=== PATIENT | female | born 1975 | race Caucasian/White ===

== ENCOUNTER 2022-02-06 13:58 | Outpatient (CLI) | payer BC, SELFPAY | END 2022-02-06 13:59 | disposition home or self-care (01) | LOC: LKVREF 13:58 | PROVIDERS: Visit Provider Emergency Medicine | DX: N12 Tubulo-interstitial nephritis, not specified as acute or chronic (principal); N39.0 Urinary tract infection, site not specified | CPT/HCPCS: 87086 ==

== ENCOUNTER 2022-05-07 14:31 | Outpatient (CLI) | payer BC, SELFPAY | END 2022-05-07 14:32 | disposition home or self-care (01) | LOC: LKVREF 14:31 | PROVIDERS: Visit Provider Emergency Medicine | DX: R30.0 Dysuria (principal); N39.0 Urinary tract infection, site not specified | CPT/HCPCS: 87086; 87186 ==

== ENCOUNTER 2022-11-06 10:07 | Outpatient (CLI) | payer BC, SELFPAY | END 2022-11-06 10:08 | disposition home or self-care (01) | LOC: NFLDREF 11-08 11:34 | PROVIDERS: PCP Emergency Medicine; Referring Provider Emergency Medicine; Visit Provider Family Medicine | DX: R39.9 Unspecified symptoms and signs involving the genitourinary system (principal); N39.0 Urinary tract infection, site not specified | CPT/HCPCS: 87086 ==

== ENCOUNTER 2023-02-23 13:09 | Outpatient (CLI) | payer BC, SELFPAY ==
--- NOTE | 2023-02-23 13:20 | CRLHL7_ITS ---
For Patients: As a result of the Cures Act, medical imaging exams and procedure reports are released immediately into your electronic medical record. You may view this report before your referring provider. If you have questions, please contact your health care provider. BILATERAL SCREENING MAMMOGRAM WITH COMPUTER-AIDED DETECTION AND TOMOSYNTHESIS TECHNIQUE: CC and MLO views were obtained. These mammographic images have been obtained using full-field digital technique. These mammographic images were interpreted with the benefit of computer-aided detection. Breast Tomosynthesis was used in this interpretation. COMPARISON FILM: 01/03/22, 12/27/20, 12/23/19. FINDINGS: The breasts are almost entirely fatty IMPRESSION: There is no radiographic evidence for malignancy. ASSESSMENT: BI-RADS Category 1: Negative RECOMMENDATION: Routine screening mammogram in 1 year. A lay language report of this examination will be provided to the patient. Paulino Alamo M.D. Diagnostic Radiologist [email or web address] Transcribed: 3:40 p.mKushal velazquez/Dictated by: Paulino Alamo MD @ 02/25/2023 1:48:00 PM (Electronically Signed)
== END 2023-02-23 13:10 | disposition home or self-care (01) ==
LOC: MAMMO 13:09
PROVIDERS: PCP Emergency Medicine; Visit Provider Emergency Medicine
DX: Z12.31 Encounter for screening mammogram for malignant neoplasm of breast (principal)
CPT/HCPCS: 77063; 77067

== ENCOUNTER 2023-04-27 09:32 | Outpatient (CLI) | payer BC, SELFPAY ==
--- NOTE | 2023-04-27 10:30 | W.ANESCHARGE ---
Anesthesia Charges Start Date/Time Anesthesia Start Date: 04/27/23 Anesthesia Start Time: 09:57 Stop Date/Time Anesthesia Stop Date: 04/27/23 Anesthesia Stop Time: 10:25
--- NOTE | 2023-04-27 10:32 | W.ANESCHARGE ---
Anesthesia Charges Start Date/Time Anesthesia Start Date: 04/27/23 Anesthesia Start Time: 09:57 Stop Date/Time Anesthesia Stop Date: 04/27/23 Anesthesia Stop Time: 10:25
--- NOTE | 2023-04-27 10:43 | W.ANESCHARGE ---
Anesthesia Charges Start Date/Time Anesthesia Start Date: 04/27/23 Anesthesia Start Time: 09:57 Stop Date/Time Anesthesia Stop Date: 04/27/23 Anesthesia Stop Time: 10:25
== END 2023-04-27 09:33 | disposition home or self-care (01) ==
LOC: OP CLINIC 09:34
PROVIDERS: PCP Emergency Medicine; Visit Provider Surgery
DX: Z12.11 Encounter for screening for malignant neoplasm of colon (principal)
CPT/HCPCS: 45378; 811; 812; J2704

== ENCOUNTER 2024-02-03 08:07 | Outpatient (CLI) | payer BC, SELFPAY | END 2024-02-03 08:08 | disposition home or self-care (01) | PROVIDERS: PCP Emergency Medicine; Visit Provider Obstetrics & Gynecology | DX: N92.1 Excessive and frequent menstruation with irregular cycle (principal); I10 Essential (primary) hypertension; E03.9 Hypothyroidism, unspecified; R53.83 Other fatigue; D50.9 Iron deficiency anemia, unspecified; E55.9 Vitamin D deficiency, unspecified | CPT/HCPCS: 82728; 83540; 83550; 84439; 84443 ==

== ENCOUNTER 2024-02-04 14:38 | Outpatient (CLI) | payer BC, SELFPAY ==
--- NOTE | 2024-02-04 14:45 | CRLHL7_ITS ---
For Patients: As a result of the Century Cures Act, medical imaging exams and procedure reports are released immediately into your electronic medical record. You may view this report before your referring provider. If you have questions, please contact your health care provider. INDICATION: Excessive and frequent menstruation COMPARISON: none TECHNIQUE: 2D stearns scale and color Doppler images were acquired of the pelvis using a transabdominal and transvaginal approach. FINDINGS: Sonographic images demonstrate a normal size and smooth outer contour of the uterus. Uterus measures 8.3 cm in length by 3.9 cm in AP diameter by 4.6 cm in transverse dimension. Incidental cervical nabothian cysts are present. The endometrial lining appears normal and measures 5 mm in composite thickness. The ovaries are not visualized. There are no suspicious fluid collections within the cul-de-sac. IMPRESSION: Endometrial thickness 5 millimeters. No endometrial fluid or uterine fibroid. Dictated by Paulino Alamo MD @ 02/05/2024 6:47:52 AM (Electronically Signed)
== END 2024-02-04 14:39 | disposition home or self-care (01) ==
LOC: US 14:38
PROVIDERS: PCP Emergency Medicine; Visit Provider Obstetrics & Gynecology
DX: N92.1 Excessive and frequent menstruation with irregular cycle (principal); R93.89 Abnormal findings on diagnostic imaging of other specified body structures
CPT/HCPCS: 76830; 76856

== ENCOUNTER 2024-03-10 15:32 | Outpatient (CLI) | payer BC, SELFPAY ==
--- NOTE | 2024-03-10 15:40 | CRLHL7_ITS ---
For Patients: As a result of the Century Cures Act, medical imaging exams and procedure reports are released immediately into your electronic medical record. You may view this report before your referring provider. If you have questions, please contact your health care provider. BILATERAL SCREENING MAMMOGRAM WITH COMPUTER-AIDED DETECTION AND TOMOSYNTHESIS TECHNIQUE: CC and MLO views were obtained. These mammographic images have been obtained using full-field digital technique. These mammographic images were interpreted with the benefit of computer-aided detection. Breast Tomosynthesis was used in this interpretation. COMPARISON FILM: 02/23/23, 01/03/22, 12/27/20. FINDINGS: There are scattered areas of fibroglandular density IMPRESSION: There is no radiographic evidence for malignancy. ASSESSMENT: BI-RADS Category 1: Negative RECOMMENDATION: Routine screening mammogram in 1 year. A lay language report of this examination will be provided to the patient. Paulino Alamo M.D. Diagnostic Radiologist [email or web address] MICHELLE/Dictated by: Paulino Alamo MD @ 03/11/2024 10:17:00 AM (Electronically Signed)
== END 2024-03-10 15:33 | disposition home or self-care (01) ==
LOC: MAMMO 15:33
PROVIDERS: PCP Family Medicine; Visit Provider Radiology Diagnostic Radiology
DX: Z12.31 Encounter for screening mammogram for malignant neoplasm of breast (principal)
CPT/HCPCS: 77063; 77067

== ENCOUNTER 2024-03-14 14:29 | Outpatient (CLI) | payer BC, SELFPAY | END 2024-03-14 14:30 | disposition home or self-care (01) | LOC: FRMREF 14:29 | PROVIDERS: PCP Family Medicine; Visit Provider Family Medicine | DX: Z01.818 Encounter for other preprocedural examination (principal); E03.9 Hypothyroidism, unspecified | CPT/HCPCS: 84443 ==

== ENCOUNTER 2024-03-24 06:55 | Day surgery (SDC) | payer BC, SELFPAY ==
[2024-03-24 07:04] VITALS: BMI 34.0
[2024-03-24] MEDS: SODIUM CHLORIDE 0.9 % (FLUSH) 10 ML SYRINGE IVF (07:10)
[2024-03-24] MEDS: LACTATED RINGERS 1000 ML 1,000 ML 100 ML IV (07:10)
--- NOTE | 2024-03-24 07:11 | W.PM.H&PU ---
History & Physical Update History & Physical Update H&P Reviewed and patient assessed: No changes noted
[2024-03-24 07:12] LABS: Ur HCG Qualitative* Negative (Negative)
[2024-03-24 07:15] VITALS: BP 138/88; PULSE 91; RESP 16; TEMP 36.6; O2SAT 96
--- NOTE | 2024-03-24 07:29 | P.PCN_ITS ---
Procedure Note Time Seen by Provider: 08:54 Date Seen: 03/24/24 Date of procedure: 03/24/24 Will [facility] bill your pro fee for this procedure?: Yes Procedure: Preoperative diagnosis: 48 yo with irregular menstrual cycles. Postoperative diagnosis: Same. Procedure: Hysteroscopy, dilation and curettage, endometrial ablation. Anesthesia: Mac and paracervical block. Surgeon: Rebeakh Ling MD Assist: None Estimated blood loss: 3 mL IV Fluid: 500 mL Specimen: Endometrial curettings, sent to path. Findings: On exam under anesthesia: The cervix and vagina appear normal. The uterus was mid position, approximately 8 week size, mobile and without masses or nodularity palpable. Adnexa were without mass or fullness palpable bilaterally. On hysteroscopy: 1 polypoid mass otherwise normal-appearing endometrium. No other abnormalities noted. The uterus sounded to 9 cm. Cervical length 4.5 cm. Cavity length: 4.5. Procedure: Uterine was taken to the operating room where conscious sedation was found to be adequate. She was placed in a dorsal lithotomy position and an exam under anesthesia was performed with the findings stated above. She was then prepped and draped in a normal sterile manner. An a bivalve is sterile speculum was placed in the vaginal canal. A paracervical block was placed using 0.5% Marcaine: 10 mL were injected at the 4 and 8 o'clock positions on the cervix. A single-tooth tenaculum was placed on the anterior lip of the cervix. The cervix was then dilated to Hegar 6. Uterus sounded to 9 cm. The cervix measured 4.5 cm. There for the cavity length was 4.5 cm. The Truclear hyste roscope was advanced into the uterus. A diagnostic hysteroscopy performed with normal saline as the insufflation medium. Findings are stated above. The Truclear incisor was then advanced into the camera. And the curettage performed with this incisor. The curettage took approximately 2 min. The cavity appeared normal once the curettage was performed completed. Total insufflation saline used: 875 mL. Deficit 105 mL. The hysteroscope was removed. The cervix was then dilated to Hegar 8. The Nicolle device was advanced into the uterus. The cavity check was completed and the ablation took place over 2 min. Patient received 30 mg of Toradol IV prior to the procedure. The Nicolle was removed, the hysteroscope readvanced to document ablation of the entire cavity. The hysteroscope was then removed. The single-tooth tenaculum was removed from the anterior lip of the cervix. [employer] nitrate was used to obtain hemostasis at the tenaculum sites. The patient tolerated this procedure well. Sponge, lap and instrument counts were correct x2 at the end of the procedure and the patient was taken to the recovery area in stable condition.
[2024-03-24] MEDS: KETOROLAC 30 MG/ML inj IVP (08:25)
[2024-03-24] MEDS: BUPIVACAINE 0.5% 30 ML INJECTION (08:33)
[2024-03-24] MEDS: SILVER NITRATE APPLICATOR 1 EACH STICK..EA. TOPICAL (08:40)
--- NOTE | 2024-03-24 08:54 | SUR.OPER ---
Talked to surgeon regarding post op skin stearns juan c on left labia. Surgeon asked that silvadene cream be applied.
[2024-03-24 08:55] VITALS: BP 102/66; PULSE 89; RESP 16; TEMP 36.4; O2SAT 97
--- NOTE | 2024-03-24 08:55 | SUR.OPER ---
fluid deficit 105 ml
--- NOTE | 2024-03-24 08:59 | W.ANESCHARGE ---
Anesthesia Charges Start Date/Time Anesthesia Start Date: 03/24/24 Anesthesia Start Time: 08:10 Stop Date/Time Anesthesia Stop Date: 03/24/24 Anesthesia Stop Time: 08:58
[2024-03-24 09:00] VITALS: BP 116/81; PULSE 79; RESP 16; O2SAT 95
[2024-03-24 09:15] VITALS: BP 124/95; PULSE 81; RESP 16; O2SAT 100
--- NOTE | 2024-03-24 09:25 | W.ANESCHARGE ---
Anesthesia Charges Start Date/Time Anesthesia Start Date: 03/24/24 Anesthesia Start Time: 08:10 Stop Date/Time Anesthesia Stop Date: 03/24/24 Anesthesia Stop Time: 08:58
[2024-03-24 09:30] VITALS: BP 130/92; PULSE 80; RESP 16; O2SAT 98
[2024-03-24 09:45] VITALS: BP 102/47; PULSE 83; RESP 16; O2SAT 98
== END 2024-03-24 10:08 | disposition home or self-care (01) ==
PROVIDERS: PCP Family Medicine; Visit Provider Obstetrics & Gynecology
PROC: 0UF98ZZ Fragmentation in Uterus, Via Natural or Artificial Opening Endoscopic (ICD-10-PCS; CPT 58563; principal; 2024-03-24 08:15)
DX: N92.1 Excessive and frequent menstruation with irregular cycle (principal); D50.9 Iron deficiency anemia, unspecified; I10 Essential (primary) hypertension; E03.9 Hypothyroidism, unspecified
CPT/HCPCS: 58563; 00952; 81025; 88305; A9270; C1782; J0665; J1100; J1885; J2405; J2704; J3010; J7120

== ENCOUNTER 2025-02-10 15:20 | Outpatient (CLI) | payer BC, SELFPAY | END 2025-02-10 15:21 | disposition home or self-care (01) | PROVIDERS: PCP Family Medicine; Visit Provider Family Medicine | DX: Z00.00 Encounter for general adult medical examination without abnormal findings (principal); D50.8 Other iron deficiency anemias; I10 Essential (primary) hypertension; F41.8 Other specified anxiety disorders; Z11.59 Encounter for screening for other viral diseases | CPT/HCPCS: 80053; 80061; 82043; 82570; 84439; 84443; 86803 ==

== ENCOUNTER 2025-03-14 14:31 | Outpatient (CLI) | payer BC, SELFPAY ==
--- NOTE | 2025-03-14 14:40 | CRLHL7_ITS ---
For Patients: As a result of the Century Cures Act, medical imaging exams and procedure reports are released immediately into your electronic medical record. You may view this report before your referring provider. If you have questions, please contact your health care provider. INDICATION: BILATERAL SCREENING MAMMOGRAM, ASYMPTOMATIC 49 Y/O FEMALE COMPARISON: 03/10/2024, 02/23/2023, 01/03/2022 TECHNIQUE: Digital mammogram in CC and MLO projections including computer-aided detection (CAD) and tomosynthesis. BREAST COMPOSITION: There are scattered areas of fibroglandular density. FINDINGS: No suspicious findings. ASSESSMENT: BI-RADS 1 Negative RECOMMENDATION: Annual screening mammogram. A lay language report of this examination will be provided to the patient. Dictated by: Paulino Alamo MD @ 03/15/2025 09:42:59 (Electronically Signed)
== END 2025-03-14 14:32 | disposition home or self-care (01) ==
LOC: MAMMO 14:32
PROVIDERS: PCP Family Medicine; Visit Provider Family Medicine
DX: Z12.31 Encounter for screening mammogram for malignant neoplasm of breast (principal)
CPT/HCPCS: 77063; 77067